=== PATIENT | female | born 1960 | race Caucasian/White ===

== ENCOUNTER → 2016-07-03 | Outpatient (CLI) | payer MEDICARE, OTHER | LOC: LAB 14:43 | DX: L29.9 Pruritus, unspecified (principal); R21 Rash and other nonspecific skin eruption | CPT/HCPCS: 82785; 86003 ==

== ENCOUNTER → 2016-09-04 | Outpatient (CLI) | payer MEDICARE, OTHER | LOC: KOH-I 14:52 | DX: R22.9 Localized swelling, mass and lump, unspecified (principal); T80.89XA Other complications following infusion, transfusion and therapeutic injection, initial encounter; M54.5 Low back pain; M79.9 Soft tissue disorder, unspecified | CPT/HCPCS: 76705 ==

== ENCOUNTER 2020-04-02 03:22 | Emergency (ER) | payer MEDICARE, OTHER ==
[~2020-04-02 03:22] MED LIST: AMPICILLIN 500500 MG PO; AUGMENTIN 875-1 EACH PO; CELECOXIB100 MG PO; COLACE 100MG C100 MG PO; IBU600 MG PO; LISINOPRIL10 MG PO; OMNICEF 300 MG300 MG PO; PHENERGAN 25 MG25 MG PR; POLYETHYLENE GL17 GM PO; REGLAN10 MG PO; RESTASIS 0.05%1 EACH OU; TORADOL 10 MG T10 MG PO; Voltaren Gel 1 % TOP; ZOFRAN 4 MG TAB4 MG PO
[2020-04-02 04:09] LABS: HEMOGLOBIN 11.1 gm/dl (12.3-15.3); RED BLOOD COUNT 4.17 M/UL (4.00-5.10); WHITE BLOOD COUNT 7.1 K/UL (4.5-11.0)
[2020-04-02 04:27] LABS: BUN/CREATININE RATIO 26 (0-10)
[2020-04-02] MEDS ORDERED: ZOFRAN ODT 4 MG4 MG GT (08:26)
== END 2020-04-02 08:42 | disposition home or self-care (01) ==
LOC: ER1 03:22
PROVIDERS: Emergency Medicine
DX: R10.84 Generalized abdominal pain (principal); R11.2 Nausea with vomiting, unspecified; I10 Essential (primary) hypertension; Z90.49 Acquired absence of other specified parts of digestive tract; Z90.710 Acquired absence of both cervix and uterus; Z98.84 Bariatric surgery status; Z88.5 Allergy status to narcotic agent
CPT/HCPCS: 71045; 80053; 81001; 83690; 84484; 85025; 93005; 96374; 99285; J2405; Q9967

== ENCOUNTER → 2020-09-29 | Outpatient (CLI) | payer MEDICARE, OTHER ==
[~2020-09-29] MED LIST changes: +NORVASC10 MG PO; +ZOFRAN ODT 4 MG4 MG GT
== END ==
LOC: RAD 13:44
DX: M25.561 Pain in right knee (principal); M25.562 Pain in left knee; M25.572 Pain in left ankle and joints of left foot; M25.571 Pain in right ankle and joints of right foot; M17.0 Bilateral primary osteoarthritis of knee
CPT/HCPCS: 73564; 73600

== ENCOUNTER 2020-11-22 13:30 | Emergency (ER) | payer MEDICARE, OTHER ==
[~2020-11-22 13:30] MED LIST changes: -NORVASC10 MG PO
[2020-11-22 14:23] LABS: HEMOGLOBIN 10.1 gm/dl (12.3-15.3); RED BLOOD COUNT 4.96 M/UL (4.00-5.10); WHITE BLOOD COUNT 12.1 K/UL (4.5-11.0)
[2020-11-22 15:02] LABS: BUN/CREATININE RATIO 15 (0-10)
[2020-11-22] MEDS ORDERED: NORVASC10 MG PO (18:09)
== END 2020-11-22 18:30 | disposition home or self-care (01) ==
LOC: ER1 13:30
PROVIDERS: Physician Assistant
DX: R07.2 Precordial pain (principal); E11.9 Type 2 diabetes mellitus without complications; I11.9 Hypertensive heart disease without heart failure
CPT/HCPCS: 71045; 80053; 82550; 82553; 83874; 84484; 85025; 93005; 96374; 99285; J2550

== ENCOUNTER → 2021-11-19 | Outpatient (CLI) | payer MEDICARE, OTHER ==
[~2021-11-19] VITALS: Ht 165.1 cm; Wt 117.0 kg
[~2021-11-19] MED LIST changes: +NORVASC10 MG PO
== END ==
LOC: OPSV 11-05 14:00
DX: M81.0 Age-related osteoporosis without current pathological fracture (principal)
CPT/HCPCS: 96372

== ENCOUNTER → 2021-12-03 | Outpatient (CLI) | payer MEDICARE, OTHER | LOC: HEART 5 11:14 | DX: R06.02 Shortness of breath (principal) | CPT/HCPCS: 94010 ==